=== PATIENT | female | born 1995 | race Caucasian/White ===

== ENCOUNTER 2017-10-15 12:06 | Inpatient (IN) | payer OTHER ==
--- NOTE | 2017-10-18 10:11 | PR ---
[facility] [address] [facility] [place], [place] [address] Signed PP Progress Notes Datetime Report Generated by CPN: 10/18/2017 10:11 SUBJECTIVE: [id number] Pain: Within normal limits Nausea/Vomiting: Denies Flatus: Yes Bowel Movement: No Vital Signs: [id number] Vital Signs: Reviewed; Within Normal Limits EXAM: [id number] Cardiovascular: Normal Respiratory: Normal Abdomen/Uterus: Normal Lochia: Normal Vulva/Perineum: Not Done Breasts: Not Done CVA Tenderness: Normal Extremities: Normal Incision: Not Applicable Progress: Abnormal Exam Comments: U-2, firm nontender IMPRESSION/PLAN/PROCEDURES: [id number] Impression: Normal progression Plan: Discharge Procedures: None Progress Notes: Patient doing well, ready to go home. Signing Physician: Alba Cobb MD Copies: ~ *Electronically Signed* 10/18/17 1011 ALBA COBB MD PATIENT NAME: LAKHWINDER KRAUS PROGRESS NOTE DATE OF : [birth year] PHYSICIAN: ALBA COBB MD RPT #: [id number] REPORT IS CONFIDENTIAL AND NOT TO BE RELEASED WITHOUT AUTHORIZATION
== END 2017-10-18 11:40 | disposition home or self-care (01) | DRG 775 ==
LOC: FBC 12:06
PROVIDERS: ADMIT Obstetrics & Gynecology
PROC: 10E0XZZ Delivery of Products of Conception, External Approach (ICD-10-PCS; principal; 2017-10-15)
PROC: 0KQM0ZZ Repair Perineum Muscle, Open Approach (ICD-10-PCS; 2017-10-15)
PROC: 10907ZC Drainage of Amniotic Fluid, Therapeutic from Products of Conception, Via Natural or Artificial Opening (ICD-10-PCS; 2017-10-15)
PROC: 00HU33Z Insertion of Infusion Device into Spinal Canal, Percutaneous Approach (ICD-10-PCS; 2017-10-15)
PROC: 3E0R3BZ Introduction of Anesthetic Agent into Spinal Canal, Percutaneous Approach (ICD-10-PCS; 2017-10-15)
DX: O24.420 Gestational diabetes mellitus in childbirth, diet controlled (principal); Z37.0 Single live birth; O99.214 Obesity complicating childbirth; E66.9 Obesity, unspecified; O70.1 Second degree perineal laceration during delivery; Z68.39 Body mass index [BMI] 39.0-39.9, adult; Z3A.38 38 weeks gestation of pregnancy
CPT/HCPCS: 01960; 36415; 85027; J2590; J7120

== ENCOUNTER 2022-09-14 13:13 | Emergency (ER) | payer OTHER ==
[~2022-09-14] VITALS: Ht 172.7 cm; Wt 144.5 kg
--- OUTSIDE RECORDS SUMMARY | 2022-09-14 13:14 | XMS ---
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 Bharati VISIT COUNT (12 MO.) Abbi Rutherford TOTAL 1 NOTE: Visits indicate total known visits. ED/UCC VISIT TRACKING (12 MO.) 09/14/2022 13:14 [facility] [place] TYPE: Emergency COMPLAINT: - ABDOMINAL PAIN INPATIENT VISIT TRACKING (12 MO.) No inpatient visits to display in this time frame [id number]
[2022-09-14] MEDS ORDERED: ONDANSETRON ODT8 MG PO (16:50)
[2022-09-14] MEDS ORDERED: HYDROCODON-ACE1 EA10 PO (16:50)
== END 2022-09-14 17:11 | disposition home or self-care (01) ==
LOC: ED 13:13
DX: K80.70 Calculus of gallbladder and bile duct without cholecystitis without obstruction (principal)
CPT/HCPCS: 36415; 76705; 80053; 83690; 84703; 85025; 96374; 99284-25; J1885

== ENCOUNTER 2022-10-02 08:55 | Day surgery (SDC) | payer OTHER ==
[~2022-10-02] VITALS: Ht 172.7 cm; Wt 143.2 kg
[~2022-10-02 08:55] MED LIST: ADDERALL 20 MG20 MG PO; HYDROCODON-ACE1 EA10 PO; LEXAPRO20 MG PO; ONDANSETRON ODT8 MG PO
[2022-10-02] MEDS ORDERED: TYLENOL EXTRA500 MG PO (13:41)
[2022-10-02] MEDS ORDERED: MOTRIN IB200 MG PO (13:42)
[2022-10-02] MEDS ORDERED: PERCOCET 7.5-31 EACH PO (13:42)
--- NOTE | 2022-10-04 13:17 | OR ---
[facility] [place] [facility] [address] [place], [place] [address] Signed DATE OF OPERATION: 10/02/2022 SURGEON: Emerson Saldana MD PREOPERATIVE DIAGNOSES: 1. Chronic calculous cholecystitis. 2. Morbid obesity (weight greater than 329 pounds). POSTOPERATIVE DIAGNOSES: 1. Chronic calculous cholecystitis. 2. Morbid obesity (weight greater than 329 pounds). PROCEDURES: 1. Laparoscopic cholecystectomy with intraoperative cholangiogram. 2. Surgeon-directed fluoroscopy. ANESTHESIA: General endotracheal, Emerson Tian CRNA and local 10 mL of 0.25% Marcaine with epinephrine. INDICATION: This 27-year-old morbidly obese white woman is a patient of Jayashree Irving. She presented to the emergency room in the recent past with right upper abdominal pain. Gallbladder ultrasound performed under the direction of Dr. Magaña did show multiple gallstones. She is essentially self-referred for further consideration of her symptomatic gallstones. I have recommended cholecystectomy, preferably by a laparoscopic approach. The risk of bleeding, infection, bile duct injury, need for open procedure and other unforeseen complications was reviewed in detail with her. She understands and wished to proceed. FINDINGS: Despite her morbid obesity, access to the gallbladder was generally straightforward. The liver had mild steatosis. The gallbladder was chronically inflamed. Once excised, it had multiple 1 cm mulberry type stones. Intraoperative cholangiogram was normal. DESCRIPTION OF PROCEDURE: The patient was brought to the operating room, given a general endotracheal anesthetic. Preoperative antibiotic Ancef was given. Sequential compression device stockings were used and heparin subcutaneously administered. The abdomen was prepared with a chlorhexidine solution and draped sterilely. An infraumbilical incision was made and Electronically Signed By: EMERSON SALDANA MD 10/04/22 1317 PATIENT NAME: LAKHWINDER KRAUS OPERATIVE REPORT DATE OF : [birth year] REPORT #: [id number] PHYSICIAN: EMERSON SALDANA MD PCP: JAYASHREE IRVING PA-C REPORT IS CONFIDENTIAL AND NOT TO BE RELEASED WITHOUT AUTHORIZATION [facility] [address] [place], [place] [address] Signed using an open Malka cannula technique, the abdomen was entered and pneumoperitoneum was achieved to a level of 14 mmHg with carbon dioxide gas. Intra-abdominal inspection showed no sign of ascites or carcinomatosis. The gallbladder was obscured from view. The liver appeared reasonably healthy, though there was mild steatosis as might be expected. Three additional trocars were placed in usual configuration in subxiphoid, right midclavicular, and right anterior axillary line. The gallbladder was elevated cephalad exposing it better than I would have expected given her obesity. Lateral retraction on the infundibulum allowed for dissection in the triangle of Calot identifying well the cystic duct and the cystic arterial branches. The cystic artery was doubly clipped and divided. A clip was applied across the gallbladder cystic duct junction and a transverse choledochotomy made in the cystic duct. Egress of clear bile was noted. An Lorenzo type cholangiocatheter was insinuated into the cystic duct. An intraoperative cholangiography was undertaken using surgeon directed fluoroscopy. Free flow of contrast was noted in the biliary tree with prompt emptying into the duodenum with retrograde filling of the more proximal biliary tree including the common hepatic duct was noted. There were no filling defects, biliary anomalies or other problem. The catheter was removed and the cystic duct was triply clipped and divided. The gallbladder was then dissected free in a retrograde fashion using electrocautery. Gallbladder was extracted through the infraumbilical port site without problem, opened on the back table and found to have several yellow mulberry gallstones. They were at least a cm in size. Reinspection of subhepatic space showed no sign of bile leak, bleeding or other problems. The trocars were removed under direct visualization showing no sign of bleeding. The infraumbilical fascial incision was reapproximated with interrupted 0 Vicryl suture. Irrigation was undertaken in the trocar sites and 10 mL of 0.25% Marcaine with epinephrine was injected locally. The skin incisions were closed with interrupted 3-0 Vicryl and Steri-Strips were applied. The patient was ultimately extubated and transferred to the recovery room in good condition having suffered no complications. Sponge, needle, and instrument counts were reported as correct x3. MD VALE Stanton/MODL /[id number] Electronically Signed By: EMERSON SALDANA MD 10/04/22 1317 PATIENT NAME: LAKHWINDER KRAUS OPERATIVE REPORT DATE OF : [birth year] REPORT #: [id number] PHYSICIAN: EMERSON SALDANA MD PCP: JAYASHREE IRVING PA-C REPORT IS CONFIDENTIAL AND NOT TO BE RELEASED WITHOUT AUTHORIZATION [place] [phone] Signed cc: JAGDISH Estevez Magaña Copies: ZACARIAS MAGAÑA ~ Electronically Signed By: EMERSON SALDANA MD 10/04/22 1317 PATIENT NAME: LAKHWINDER KRAUS OPERATIVE REPORT DATE OF : [birth year] REPORT #: [id number] PHYSICIAN: EMERSON ASLDANA MD PCP: JAYASHREE IRVING PA-C REPORT IS CONFIDENTIAL AND NOT TO BE RELEASED WITHOUT AUTHORIZATION
--- NOTE | 2022-10-07 15:04 | PATH ---
[facility] [address] [place], [place] [address] Signed SPECIMEN(S): A GALLBLADDER AND STONES SPECIMEN SOURCE: A. GALLBLADDER AND STONES CLINICAL HISTORY: Chronic cholecystitis with calculus. FINAL PATHOLOGIC DIAGNOSIS: Gallbladder and stones: - Chronic calculous cholecystitis. - Mucosal cholesterolosis. JVR:benita:C2NR MICROSCOPIC EXAMINATION: Histologic sections of all submitted blocks are examined by light microscopy. These findings, together with the gross examination, support the pathologic diagnosis. GROSS DESCRIPTION: The specimen, labeled and designated "Rickey, gallbladder and stones," is received in formalin and consists of Specimen: Previously opened gallbladder. Dimensions: 7.4 x 3.0 x 2.4 cm. Serosa: Green-hwang smooth. Cystic Duct: Unobstructed, margin inked black and shaved. Calculi: Green-brown bosselated calculi (1.2, 1.3 and 1.4 cm in greatest dimension). Mucosa: Green and velvety. Wall thickness: 0.4 cm. Lymph node: No pericystic lymph nodes are grossly identified. Additional: None. Custom Miller sections are submitted in (A1). AC (under the direct supervision of a pathologist) The Gross Description was prepared using a voice recognition system. The report was reviewed for accuracy; however, sound-alike word errors, addition and/or deletions may occur. If there is any question about this report, please contact Client Services. PERFORMING LABORATORY: The technical component was performed by [employer], Hortencia Macdonald, PATIENT NAME: LAKHWINDER KRAUS PATHOLOGY DATE OF : [birth year] REPORT #: [id number] PHYSICIAN: FREDA TERAN PCP: JAYASHREE NICOLE PA-C REPORT IS CONFIDENTIAL AND NOT TO BE RELEASED WITHOUT AUTHORIZATION [address] [place], [place] [address] [place] [address] (CLIA# [id number]). Professional interpretation [facility] - [address] [address] (CLIA#: [id number]). Diagnostician: Joshua Padron MD Pathologist Electronically Signed 10/07/2022 Copies: ~ PATIENT NAME: LAKHWINDER KRAUS PATHOLOGY DATE OF : [birth year] REPORT #: [id number] PHYSICIAN: FREDA TERAN PCP: JAYASHREE NICOLE PA-C REPORT IS CONFIDENTIAL AND NOT TO BE RELEASED WITHOUT AUTHORIZATION
== END 2022-10-02 15:15 | disposition home or self-care (01) ==
LOC: DS 08:55
PROVIDERS: ATTEND Surgery
PROC: BF121ZZ Fluoroscopy of Gallbladder using Low Osmolar Contrast (ICD-10-PCS; 2022-10-02)
PROC: 0FT44ZZ Resection of Gallbladder, Percutaneous Endoscopic Approach (ICD-10-PCS; principal; 2022-10-02 11:00)
DX: K80.10 Calculus of gallbladder with chronic cholecystitis without obstruction (principal); E66.01 Morbid (severe) obesity due to excess calories; F90.0 Attention-deficit hyperactivity disorder, predominantly inattentive type; Z68.42 Body mass index [BMI] 45.0-49.9, adult
CPT/HCPCS: 00790; 74300; J0131; J0330; J0690; J1100; J1644; J1885; J2250; J2704; J2765; J3010; J7121; Q9967